=== PATIENT | female | born 1955 | race Caucasian/White ===

== ENCOUNTER → 2016-08-19 | Outpatient (CLI) | payer BC ==
--- NOTE | 2016-08-19 12:14 | DI ---
History left-sided back pain. 4-view. Prior exam: None. Findings: Moderate curvature of the lumbar spine convex to the right, 22? with rotational component m easured at L1-L2. Surgical clips right upper quadrant of the abdomen. The lateral view shows normal a natomic alignment. Mild spondylosis. Some osteophyte formation noted principally at L2-L3. Degenerative changes right hip with marginal osteophyte formation and some joint space narrowing. No abnormal calcifications identified. 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 Multilevel spondylosis and degenerative disc disease with narrowing. Previous right upper quadrant abdominal surgery. Mild degenerative change mostly right hip
--- NOTE | 2016-08-19 12:17 | DI ---
History: Left hip pain. Procedure: Three-view. Findings: There are some mild degenerative changes both hips a small amount osteophyte formation seen in the right femoral head. Adequate acetabular coverage is seen. The pelvic ring is intact. Impression: Mild degenerative changes both hips the actual degree of degenerative changes slightly mo re apparent on the right than left. No evidence of fracture or other acute process observed
--- NOTE | 2016-08-19 12:22 | DI ---
History: Left knee pain. Procedure: 4 view study. Findings: Good joint preservation noted. No effusion observed. No evidence of fracture. Impression: Unremarkable 4 view left knee study
== END ==
LOC: ORTHO 11:27
PROVIDERS: ATTEND Orthopaedic Surgery
DX: M54.5 Low back pain (principal); M25.552 Pain in left hip; M25.562 Pain in left knee; M16.0 Bilateral primary osteoarthritis of hip
CPT/HCPCS: 72100; 73502; 73564

== ENCOUNTER → 2016-08-25 | Outpatient (CLI) | payer BC ==
--- NOTE | 2016-08-25 23:27 | DI ---
MRI LEFT KNEE SCAN, 08/25/2016 2:50 PM: Clinical History: Left knee pain. Previous Exam: None at this facility. Technique: Axial, coronal, and sagittal PD and fat saturated PD; axial T1 weighted. There is no soft tissue edema. There is a large joint effusion with synovitis in the suprapatellar bu rsa and minimally in the region of Hoffa's fat pad. There is a large posterior medial cyst showing ev idence of synovitis. It measures 25 x 30 x 60 mm in AP, transverse, and longitudinal dimensions. Ther e is modest edema in the posterior aspect of the medial tibial plateau just anterior to the posterior cruciate ligament. There is a chronic partial tear in the medial patellofemoral ligament and the med ial retinaculum without subluxation of the patella. The medial and lateral menisci and the anterior a nd posterior cruciate ligaments are normal. There is a tear in the meniscal root of the medial menisc us with a small radial tear in the posterior horn. The lateral meniscus is normal. The quadriceps, pa tellar, and popliteus tendons and the tendon of the lateral head of the gastrocnemius muscle are norm al. Intermediate signal intensity is present in the tendon of the medial head of the gastrocnemius mu scle consistent with a chronic tear. Focal thinning of the central portion of the cartilage of the me dial femoral condyle is present. There is almost complete erosion of the cartilage of the medial face t of the patella. The lateral facet cartilage is intact. The articular surfaces of the lateral compar tment are normal. Readin. Large joint effusion and a large medial popliteal cyst with synovitis. There is modest edema in t he posterior aspect of the medial tibial plateau. There is a flap tear involving the meniscal root of the medial meniscus with a small radial tear in the posterior horn. Chronic partial tears are presen t in the medial patellofemoral ligament and the medial retinaculum as well as in the tendon of the me dial head of the gastrocnemius muscle. Complete erosion of the cartilage is present in the medial fac et of the patella and there is marked thinning of the central portion of the cartilage of the medial femoral condyle. 2. The MCL, LCL, ACL, PCL, lateral meniscus, and the quadriceps and patellar and popliteus tendons a nd the tendon of the lateral head of the gastrocnemius muscle are normal. The articular surfaces of t he lateral compartment are intact.
== END ==
LOC: MRI 14:42
PROVIDERS: ATTEND Orthopaedic Surgery
DX: M25.562 Pain in left knee (principal); M71.22 Synovial cyst of popliteal space [Baker], left knee; M25.462 Effusion, left knee; S83.92XA Sprain of unspecified site of left knee, initial encounter; M23.222 Derangement of posterior horn of medial meniscus due to old tear or injury, left knee; M23.8X2 Other internal derangements of left knee; M94.8X6 Other specified disorders of cartilage, lower leg
CPT/HCPCS: 73721

== ENCOUNTER 2016-10-07 10:51 | Day surgery (SDC) | payer BC ==
[~2016-10-07 10:51] MED LIST: LIDOCAINE W/ SODIUM BICARB 0.5 ML SYR ONE; Lactated Ringers 1,000 ML PRIMARY IV ONE; ceFAZolin Inj 2gm (Premix) 50 ML IV ONE
[2016-10-07] MEDS ORDERED: LIDOCAINE MPF 2% - 5 ML (20 MG/1 ML) ONE (11:58)
[2016-10-07] MEDS ORDERED: fentaNYL Inj 250 MCG/5 ML VIAL ONE (11:59)
[2016-10-07] MEDS ORDERED: EPINEPHrine Inj (1:1,000) 30mg/30ml vial ONE (11:59)
[2016-10-07] MEDS ORDERED: MIDAZOLAM 5 MG/1 ML ONE (11:59)
[2016-10-07] MEDS ORDERED: Ropivacaine 0.2% VIAL 20 ML ONE (11:59)
[2016-10-07] MEDS ORDERED: Lactated Ringers 1,000 ML PRIMARY IV ONE (13:14)
[2016-10-07] MEDS ORDERED: ONDANSETRON 4 MG/2 ML VIAL IVP PRN ×2 (13:34→14:40)
[2016-10-07] MEDS ORDERED: fentaNYL Inj 100 MCG/2 ML VIAL IVP PRN (13:34)
[2016-10-07] MEDS ORDERED: NORMAL SALINE 10 ML SYRINGE FLUSH IVP PRN ×2 (13:34→14:40)
[2016-10-07] MEDS ORDERED: HYDROmorphone 2 MG/1 ML IVP PRN (13:34)
[2016-10-07 13:35] VITALS: RESP 13
[2016-10-07] MEDS ORDERED: Lactated Ringers 1,000 ML PRIMARY IV SCH ×2 (13:45→14:45)
[2016-10-07] MEDS ORDERED: BETAMET ACET/BETAMET NA PH 6 MG/1 ML - 5 ML ONE (14:06)
[2016-10-07] MEDS ORDERED: KETOROLAC 30 MG/1 ML VIAL ONE (14:17)
[2016-10-07] MEDS ORDERED: CALCIUM CARBONATE 500 MG (TUMS) CHEWABLE TABLET PO PRN (14:40)
[2016-10-07] MEDS ORDERED: BISACODYL 10 MG SUPPOSITORY RECTAL PRN (14:40)
[2016-10-07] MEDS ORDERED: MAG HYDROX/AL HYDROX/SIMETH 30 ML SUSP PO PRN (14:40)
[2016-10-07] MEDS ORDERED: diphenhydrAMINE 25 MG CAPSULE PO PRN (14:40)
[2016-10-07] MEDS ORDERED: Prochlorperazine Tab 10 MG TAB PO PRN (14:40)
[2016-10-07] MEDS ORDERED: BISACODYL 5 MG TABLET PO PRN (14:40)
[2016-10-07] MEDS ORDERED: IBUPROFEN 400 MG TABLET PO PRN (14:40)
[2016-10-07] MEDS ORDERED: ACETAMINOPHEN 325 MG TABLET PO PRN (14:40)
[2016-10-07] MEDS ORDERED: MORPHINE SULFATE 2 MG/1 ML IVP PRN (14:40)
[2016-10-07] MEDS ORDERED: Ondansetron ODT Tab 8 MG TAB PO PRN (14:40)
[2016-10-07] MEDS ORDERED: HYDROcodone-APAP 7.5 MG-325 MG TABLET PO ONE ×2 (14:49→15:17)
[2016-10-07] MEDS: HYDROcodone-APAP 7.5 MG-325 MG TABLET PO PRN ×2 (14:50→15:17)
[2016-10-07 16:15] VITALS: TEMP 99.3
--- NOTE | 2016-10-11 14:51 | OPS CRUTCH ---
Diagnosis : Left Knee Debridement Referral Reason: Gait Training O: The patient was instructed in the use of crutches with gait belt, both on level surfaces and up and down three stairs. P: No further therapy is indicated at this time. MTDD
== END 2016-10-07 16:08 | disposition home or self-care (01) ==
LOC: SDSC 10:51
PROVIDERS: ATTEND Orthopaedic Surgery
DX: S83.232A Complex tear of medial meniscus, current injury, left knee, initial encounter (principal); S83.32XA Tear of articular cartilage of left knee, current, initial encounter; M65.862 Other synovitis and tenosynovitis, left lower leg
CPT/HCPCS: 29881; J0171; J0690; J0702; J1885; J2704; J2795; J3010; 97530; J2001; J2250; J7120

== ENCOUNTER 2018-07-19 06:22 | Observation (INO) ==
[~2018-07-19 06:22] MED LIST changes: +CefOXitin Inj 2 GM in Sodium Chloride 0.9% 100 ML IV ONE; +LIDOCAINE W/ SODIUM BICARB 0.5 ML SYR SUBD PRN; -Lactated Ringers 1,000 ML PRIMARY IV ONE; +Lactated Ringers 2,000 ML PRIMARY IV ONE; +Nasal Sanitizer POPSWAB ampule 3 AMP (Nozin) PREOP DOSE ENOS SCH; +Sodium Chloride 0.9% 100 ML IV ONE; -ceFAZolin Inj 2gm (Premix) 50 ML IV ONE
[2018-07-19] MEDS: Lactated Ringers 1,000 ML PRIMARY IV SCH ×2 (06:36→22:36)
[2018-07-19 06:42] LABS: BILIRUBIN,URINE NEGATIVE (NEG); CLARITY,URINE CLEAR (CLEAR); COLOR,URINE YELLOW (Y); GLUCOSE, URINE (UA) NEGATIVE (NEG); OCCULT BLOOD,URINE NEGATIVE (NEG); PROTEIN,URINE NEGATIVE (NEG); UROBILINOGEN,URINE 0.2 EU/dL (0.2)
[2018-07-19 06:44] LABS: URINE SAMPLE TYPE CLEAN CATCH URINE
[2018-07-19] MEDS ORDERED: PROPOFOL 10 MG/1 ML (200 MG/20 ML) VIAL IV ONE (06:49)
[2018-07-19] MEDS ORDERED: LIDOCAINE MPF 2% - 5 ML (20 MG/1 ML) ONE (06:49)
[2018-07-19] MEDS ORDERED: KETAMINE 100 MG/1 ML - 5 ML ONE (06:51)
[2018-07-19] MEDS ORDERED: fentaNYL Inj 250 MCG/5 ML VIAL ONE (06:51)
[2018-07-19] MEDS ORDERED: MIDAZOLAM 5 MG/1 ML ONE (06:51)
[2018-07-19] MEDS ORDERED: LIDOCAINE HCL 2 % 10 ML JELLY URO-JECT TOPICAL ONE ×2 (06:51→08:40)
[2018-07-19] MEDS ORDERED: BUPIVACAINE 0.25% W/ EPI - 10 ML VIAL ONE (06:52)
[2018-07-19] MEDS ORDERED: ROCURONIUM 10 MG/1 ML - 5 ML VIAL IVP ONE (06:55)
[2018-07-19 06:58] LABS: Hematocrit [HCT] 40.9 % (37.0-47.0); Hemoglobin [HGB] 13.4 g/dL (12.0-16.0)
[2018-07-19] MEDS ORDERED: SCOPOLAMINE HYDROBROMIDE 1.5 MG - 1 EACH PATCH TRANSDERM ONE (07:31)
[2018-07-19] MEDS ORDERED: PANTOPRAZOLE IV 40 MG VIAL ONE (07:32)
[2018-07-19] MEDS ORDERED: DEXAMETHASONE PF 10 MG/1 ML VIAL ONE (07:32)
[2018-07-19] MEDS ORDERED: OXYMETAZOLINE 0.05% 15 ML NASAL SPRAY ONE (07:33)
[2018-07-19] MEDS ORDERED: Acetaminophen 1000mg Inj 1,000 MG/100 ML VIAL IV ONE (07:33)
[2018-07-19] MEDS ORDERED: Bacteriostatic NaCl Inj 30ml Vial ONE (07:36)
[2018-07-19] MEDS ORDERED: SUFENTANIL 50 MCG/1 ML ONE (08:22)
[2018-07-19] MEDS ORDERED: REMIFENTANIL HCL 2 MG VIAL IV ONE ×2 (08:59→11:28)
[2018-07-19] MEDS ORDERED: REMIFENTANIL 1 MG/1 ML IV ONE (08:59)
[2018-07-19] MEDS ORDERED: KETOROLAC 30 MG/1 ML VIAL ONE (10:25)
[2018-07-19] MEDS ORDERED: Opium-Belladonna 60-16.2mg 1 EACH SUPP.RECT RECTAL ONE ×2 (11:45→11:49)
[2018-07-19] MEDS ORDERED: ONDANSETRON 4 MG/2 ML VIAL ONE (12:01)
[2018-07-19] MEDS ORDERED: SUGAMMADEX SODIUM 200 MG/2 ML VIAL IV ONE (12:09)
[2018-07-19] MEDS ORDERED: IBUPROFEN 800 MG TABLET PO PRN (12:31)
[2018-07-19] MEDS ORDERED: Ondansetron ODT Tab 8 MG TAB PO PRN (12:31)
--- NOTE | 2018-07-19 12:39 | OB.OP.NOTE ---
Operative Report Surgeon: Dr. Covington Rn Private Duty: Mynor Valenzuela MD Anesthesia Type: General Anesthesia Provider: Amarjit Carlton CRNA Surgery Date: 07/19/18 Preoperative Diagnosis: Symptomatic Pelvic Relaxation, Uterovaginal Prolapse Postoperative Diagnosis: Same Procedure: da Ciara Hysterectomy/BSO/Sacral Colpopexy/Cystoscopy Estimated Blood Loss (mL): 20 Fluids: 3500 ml Complications: None identified. Findings at Surgery: 9 cm uterine sound. Normal tubes and ovaries. Large cystocele. Good posterior support. No mesh from her previous procedure was encountered. At cysto, both ureters ejected urine and the bladder was intact. Indications for the Procedure: Symptomatic Pelvic Relaxation with large cystocele and uterine descent. Description of Procedure: See dictated operative report. Plan: Overnight observation. Home in the morning.
--- NOTE | 2018-07-19 13:12 | CRNA.PROGR ---
Anesthesia Recovery Phase I - Post Anesthesia Evaluation Patient's Condition on Arrival in Phase I: Stable Pain Level: 2
[2018-07-19] MEDS ORDERED: Prochlorperazine Edisylate Inj 10mg/2ml vial IVP PRN (13:14)
[2018-07-19] MEDS ORDERED: LIDOCAINE W/ SODIUM BICARB 0.5 ML SYR SUBD PRN (13:14)
--- NOTE | 2018-07-19 13:14 | CRNA.PROGR ---
Anesthesia Time - Procedure/Recovery Time Start Date: 07/19/18 End Date: 07/19/18 Anesthesia : Time In: 07:50 Anesthesia : Time Out: 13:10 Anesthesia : Total Time: 320 - Total Anesthesia Time Total Anesthesia Time (minutes): 320 - Other Weight: 93.168 kg Height: 5 ft 7 in Body Mass Index (BMI): 32.1 Physical Status: P2 Anesthesia Type: General Anesthesia : ET
[2018-07-19] MEDS: HYDROmorphone 2 MG/1 ML IVP PRN ×2 (13:18→13:26)
[2018-07-19] MEDS: DIAZEPAM 10 MG/2 ML (5 MG/1 ML) CARPUJECT IVP PRN ×2 (13:28→13:44)
[2018-07-19] MEDS: HYDROcodone-APAP 5 MG -325 MG TABLET PO PRN ×2 (15:10→20:07)
[2018-07-19] MEDS: KETOROLAC 15 MG/1 ML VIAL IVP SCH (17:53)
[2018-07-19] MEDS: DOCUSATE 100 MG CAPSULE PO SCH (20:31)
[2018-07-20] MEDS: KETOROLAC 15 MG/1 ML VIAL IVP SCH ×2 (00:10→07:31)
[2018-07-20] MEDS: HYDROcodone-APAP 5 MG -325 MG TABLET PO PRN (05:09)
--- NOTE | 2018-07-20 08:18 | DCSUMMARY ---
Hospitalization Summary Admit Date: 07/19/18 Discharge Date: 07/20/18 Primary Diagnosis:: Symptomatic Pelvic Relaxation Hospital Course: The patient had an uncomplicated robotic supracervical hysterectomy/BSO/Sacral Colpopexy. She was observed overnight and discharged to home on POD 1 in good condition. F/u 2 weeks. Exam - Vitals Vital Signs: Vital Signs Temperature 98.1 F Temperature Source Oral Pulse Rate [Pulse Oximeter] 69 Pulse Rate [Pulse Oximeter] 74 Pulse Rate 78 Respiratory Rate 16 Blood Pressure [Left Arm] 108/50 Blood Pressure [Left Arm] 142/75 Blood Pressure 152/87 Pulse Ox 94 Oxygen Flow Rate 2 Oxygen Delivery Method Nasal Cannula Height 5 ft 7 in Weight 205 lb 6.5 oz
--- NOTE | 2018-07-20 08:22 | PDOC(PROG) ---
Subjective Post Op Day: 1 Pain Management: PO Santiago Catheter: Yes Flatus: Yes Diet: Regular Ambulating: Yes Concerns / Additional Information: Ynes is doing well this AM. She denies significant pain. Santiago remains in place. She has ambulated without difficulty. Assesstment / Plan Assessment / Plan: POD 1, doing well. Plan to dc the santiago, verify voiding function, and discharge to home.
[2018-07-20] MEDS: DOCUSATE 100 MG CAPSULE PO SCH (08:33)
== END 2018-07-20 11:09 | disposition home or self-care (01) ==
LOC: OR 06:22 → MED/SURG 06:22 → EDSTATUS 07:45
PROVIDERS: ADMIT Obstetrics & Gynecology; ATTEND Obstetrics & Gynecology